=== PATIENT | female | born 1995 | race American Indian/Alaskan Native ===

== ENCOUNTER 2017-08-10 05:47 | Emergency (ER) | payer OTHER, BC ==
[2017-08-10 06:13] VITALS: BP 130/70
[2017-08-10 06:39] LABS: HCG Qualitative,Urine Negative (Negative)
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
[2017-08-10] MEDS ORDERED: FLEXERIL PO ONE (06:47)
[2017-08-10] MEDS ORDERED: MOTRIN PO ONE (06:47)
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
== END 2017-08-10 07:47 | disposition home or self-care (01) ==
LOC: ED 05:47
DX: S13.4XXA Sprain of ligaments of cervical spine, initial encounter (principal); S39.012A Strain of muscle, fascia and tendon of lower back, initial encounter; V89.2XXA Person injured in unspecified motor-vehicle accident, traffic, initial encounter; Y93.89 Activity, other specified; Y92.89 Other specified places as the place of occurrence of the external cause; Y99.8 Other external cause status
CPT/HCPCS: 72040; 72100; 81025; 99284

== ENCOUNTER 2019-09-19 15:17 | Outpatient (CLI) | payer MEDICAID ==
[2019-09-19 17:27] LABS: Hematocrit 31.9 % (30.3-42.9); Hemoglobin 10.3 gm/dl (10.1-14.3); Mean Corpuscular HGB Conc 32 % (30-34); Mean Corpuscular Volume 77 fl (79-97); Platelet Count 291 K/mm3 (140-440); Red Blood Count 4.13 M/mm3 (3.65-5.03); Red Cell Distribution Width 16.8 % (13.2-15.2)
[2019-09-19 17:33] LABS: Bacteria,Urine 1+ /HPF (Negative); Bilirubin,Urine NEG (Negative); Blood,Urine NEG (Negative); Color,Urine Yellow (Yellow); Protein,Urine <15 mg/dL mg/dL (Negative); Urobilinogen,Urine < 2.0 mg/dL (<2.0)
--- NOTE | 2019-09-19 17:36 | Event Note ---
Date: 09/19/19 (Pt doing well. ) Pt sent from the office d/t elevated blood pressures during routine OB follow up. Here in triage, her BP's have been 110's/70's. She denies RIBEIRO, blurred vision, spots before her eyes, upper abdominal pain. Labs were drawn and sent. Explained plan of care: To send labs, watch BP's, and if all are WNL she will be allowed to go home with what s/sx to watch out for. Pt verbalized understanding.
[2019-09-19 17:46] LABS: Alanine Aminotransferase 8 units/L (7-56); Uric Acid 3.9 mg/dL (3.5-7.6)
[2019-09-19 19:25] VITALS: BP 109/73
== END 2019-09-19 19:50 | disposition home or self-care (01) ==
LOC: TRG 15:17 → APU 15:19 → TRG 19:50
PROVIDERS: ATTEND Obstetrics & Gynecology
DX: Z34.03 Encounter for supervision of normal first pregnancy, third trimester (principal); Z3A.38 38 weeks gestation of pregnancy
CPT/HCPCS: 36415; 59025; 81001; 82565; 83615; 84450; 84460; 84550; 85027

== ENCOUNTER 2019-09-26 04:14 | Outpatient (CLI) | payer MEDICAID ==
[2019-09-26 06:00] VITALS: BP 124/70
== END 2019-09-26 06:15 | disposition home or self-care (01) ==
LOC: TRG 04:14
PROVIDERS: ATTEND Obstetrics & Gynecology
DX: O47.1 False labor at or after 37 completed weeks of gestation (principal); Z3A.39 39 weeks gestation of pregnancy
CPT/HCPCS: 59025

== ENCOUNTER 2019-09-26 15:19 | Outpatient (CLI) | payer MEDICAID ==
[2019-09-26 16:19] LABS: Bilirubin,Urine NEG (Negative); Blood,Urine NEG (Negative); Color,Urine Yellow (Yellow); Mucus,Urine FEW /HPF; Protein,Urine <15 mg/dL mg/dL (Negative); Urobilinogen,Urine < 2.0 mg/dL (<2.0)
[2019-09-26 16:23] LABS: Hematocrit 29.5 % (30.3-42.9); Hemoglobin 10.3 gm/dl (10.1-14.3); Mean Corpuscular HGB Conc 35 % (30-34); Mean Corpuscular Volume 76 fl (79-97); Platelet Count 321 K/mm3 (140-440); Red Cell Distribution Width 16.6 % (13.2-15.2)
[2019-09-26 16:38] LABS: Alanine Aminotransferase 8 units/L (7-56); Uric Acid 3.6 mg/dL (3.5-7.6)
[2019-09-26 16:49] VITALS: BP 108/64
== END 2019-09-26 17:28 | disposition home or self-care (01) ==
LOC: TRG 15:19 → APU 15:20 → TRG 17:28
PROVIDERS: ATTEND Obstetrics & Gynecology
DX: O13.3 Gestational [pregnancy-induced] hypertension without significant proteinuria, third trimester (principal); Z3A.39 39 weeks gestation of pregnancy
CPT/HCPCS: 36415; 59025; 81001; 82565; 83615; 84450; 84460; 84550; 85027